=== PATIENT | male | born 1970 | race Caucasian/White ===

== ENCOUNTER 2016-04-23 19:45 | Emergency (ER) | payer OTHER ==
[2016-04-23] MEDS ORDERED: NS 0.9% 1000 ML* 1,000 ML IV SCH (21:00)
--- NOTE | 2016-04-23 21:09 | RAD ---
indication: Dizziness, Bilateral ecchymosis and midline forehead "bump" after falling down stairs. COMPARISON: CT of the brain dated January 30, [address] scan of the brain and c-spine was performed without intravenous contrast enhancement. Contiguous axial sections were obtained from the lung apices through the vertex. BRAIN: The ventricles, cisterns and sulci are within normal limits. No significant focal abnormality or mass effect is seen. The montes-white differentiation is adequately maintained. There is no evidence for intracranial hemorrhage. No significant bony abnormality is present. The mastoid air cells are appropriately aerated. The visualized paranasal sinuses are clear. FACIAL BONES: There is subcutaneous soft tissue induration and thickening overlying the midline frontal bone, nasal bone and bilateral super orbital area. Bones: There are bilateral nasal bone fractures deviated towards the patient's left, stable when compared to the previous CT examination. The orbital rim is intact. The zygomatic arch is intact. The pterygoid plates are intact Orbits: The globes are round. The optic nerves are symmetric. The extraocular musculature is normal. There is no post septal or intraconal inflammatory change. There is no retrobulbar hematoma. Paranasal Sinuses: The paranasal sinuses are clear. C-SPINE: On the sagittal view images the vertebral bodies and bilateral facet joints are correctly aligned. The dens is intact and the atlantoaxial interval is not widened. There is nonspecific straightening of the normal cervical lordosis. Mild degenerative changes include loss of intervertebral disc height. There is no hyperdense material in the cervical canal to indicate hemorrhage. The visualized musculature and soft tissues are normal. There is no gross lymphadenopathy visualized. The visualized portion of the lung apices are clear. IMPRESSION: 1. No calvarial fracture or acute intracranial hemorrhage. 2. Chronic nasal bone fractures unchanged since the January 30, 2016 CT of the brain. 3. There is subcutaneous induration and thickening overlying the midline frontal bone but no acute facial bone fractures are identified. 4. Mild degenerative changes of the cervical spine without evidence of acute fracture or dislocation.
[2016-04-23 21:10] LABS: Hematocrit 41 % (42-52); Hemoglobin 13.6 g/dl (14.0-18.0); Mean Corpuscular HGB Conc 33 g/dl (31-36); Mean Corpuscular Hemoglobin 30 pg (27-31); Mean Corpuscular Volume 90 fL (80-94); Mean Platelet Volume 9 um3 (7.4-10.4); Red Blood Count 4.53 10^6/ul (4.0-5.4); Red Cell Distribution Width 15 % (10.5-15); White Blood Count 8.6 10^3/ul (3.5-10.8)
[2016-04-23 21:20] LABS: Ammonia 44 mol/L (16-53)
[2016-04-23 21:28] LABS: Acetaminophen < 15 mcg/mL; Alcohol < 10 mg/dL (<10); Salicylate < 2.50 mg/dL (<30)
[2016-04-23 21:38] LABS: TSH (Thyroid Stimulating Horm) 0.54 mcIU/mL (0.34-5.60)
--- NOTE | 2016-04-23 22:12 | RAD ---
Indication: Left lower leg pain after a fall down the stairs Comparison: None. Technique: 4 views of the left lower leg, 3 views of the left ankle and 4 views of the left foot were obtained. Report: There is a nondisplaced partially comminuted fracture at the proximal metaphysis of the fibula. The remaining visualized bones are adequately corticated and well aligned. The knee and ankle joints are appropriately aligned. The soft tissues appear grossly normal. IMPRESSION: Minimally displaced comminuted fracture involving the proximal left fibula.
[2016-04-23 22:39] LABS: ALT 14 U/L (7-52); AST 20 U/L (13-39); Albumin 3.8 g/dL (3.2-5.2); Alkaline Phosphatase 62 U/L (34-104); Anion Gap 10 mmol/L (2-11); BUN/Creatinine Ratio 18.2 (8-20); Blood Urea Nitrogen 16 mg/dL (6-24); C Reactive Protein 73.65 mg/L (< 5.00); CO2 Carbon Dioxide 22 mmol/L (22-32); Calcium 8.8 mg/dL (8.6-10.3); Chloride 103 mmol/L (101-111); Creatine Kinase 271 U/L (10-223); EGFR African American 119.4 (>60); EGFR Non-African American 92.8 (>60); Globulin 2.6 g/dL (2-4); Glucose 87 mg/dL (70-100); Lipase 36 U/L (11.0-82.0); Magnesium 2.2 mg/dL (1.9-2.7); Potassium 3.6 mmol/L (3.5-5.0); Sodium 135 mmol/L (133-145); Total Protein 6.4 g/dL (6.4-8.9)
[2016-04-23 22:46] LABS: B Type Natriuretic Peptide 82 pg/mL
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
[2016-04-24 00:12] VITALS: BP 108/66
== END 2016-04-24 00:21 | disposition short-term general hospital (02) ==
LOC: ED 19:45
DX: S09.90XA Unspecified injury of head, initial encounter (principal); S82.402A Unspecified fracture of shaft of left fibula, initial encounter for closed fracture; R51 Headache; Z87.891 Personal history of nicotine dependence; W19.XXXA Unspecified fall, initial encounter; Y93.9 Activity, unspecified; Y92.9 Unspecified place or not applicable; Y99.9 Unspecified external cause status; W10.9XXA Fall (on) (from) unspecified stairs and steps, initial encounter
CPT/HCPCS: 36415; 70450; 70486; 72125; 80053; 80320; 80329; 82140; 82550; 82553; 83605; 83690; 83735; 83880; 84443; 84484; 85025; 85610; 85730; 86140; 93005; 99285; G0480

== ENCOUNTER 2016-05-06 19:39 | Emergency (ER) | payer OTHER ==
[2016-05-06] MEDS ORDERED: Ibuprofen TAB* 800 MG PO ONE (20:42)
--- NOTE | 2016-05-06 21:39 | RAD ---
INDICATION: Left ankle injury. TECHNIQUE: 3 views of the left ankle were obtained. FINDINGS: There is diffuse soft tissue swelling. There is a small linear avulsion fracture fragment arising from the dorsal aspect of the navicular bone. No other fractures are seen. Joint spaces appear maintained. IMPRESSION: 1. DIFFUSE SOFT TISSUE SWELLING. 2. SMALL NONDISPLACED AVULSION FRACTURE FRAGMENT ARISING FROM THE DORSAL NAVICULAR BONE.
--- NOTE | 2016-05-06 21:39 | RAD ---
INDICATION: Left lower leg injury. TECHNIQUE: 2 views of the left lower leg were obtained. FINDINGS: There is an oblique slightly comminuted fracture of the proximal fibular metaphysis. The fracture fragments are slightly distracted. IMPRESSION: OBLIQUE SLIGHTLY COMMINUTED FRACTURE OF THE PROXIMAL FIBULAR METAPHYSIS.
--- NOTE | 2016-05-06 21:43 | RAD ---
INDICATION: Left foot injury. TECHNIQUE: 3 views of the left foot were obtained. FINDINGS: There is diffuse soft tissue swelling which is most prominent along the dorsal aspect of the foot. There is a small linear nondisplaced avulsion fracture fragment arising from the dorsal aspect of the navicular bone. There is also a small linear calcific density between the first and second metatarsals suggesting the possibility of a Lisfranc injury. IMPRESSION: 1. DIFFUSE SOFT TISSUE SWELLING. 2. SMALL LINEAR AVULSION FRACTURE FRAGMENT ARISING FROM THE DORSAL NAVICULAR BONE. 3. SMALL LINEAR CALCIFIC DENSITY BETWEEN THE BASES OF THE FIRST AND SECOND METATARSALS POSSIBLY INDICATING A LISFRANC INJURY. IF THE PATIENT HAS PAIN OVER THIS AREA RECOMMEND A FOLLOW-UP MRI OF THE FOOT FOR FURTHER EVALUATION.
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
[2016-05-06] MEDS ORDERED: HYDROcodone/ACETAMIN 5-325 MG* 1 TAB PO ONE (22:55)
[2016-05-07 00:15] VITALS: BP 126/74
== END 2016-05-07 00:07 | disposition home or self-care (01) ==
LOC: ED 19:39
DX: S82.402A Unspecified fracture of shaft of left fibula, initial encounter for closed fracture (principal); S92.252A Displaced fracture of navicular [scaphoid] of left foot, initial encounter for closed fracture; M25.572 Pain in left ankle and joints of left foot; Z87.891 Personal history of nicotine dependence; W19.XXXA Unspecified fall, initial encounter; Y93.9 Activity, unspecified; Y92.9 Unspecified place or not applicable; Y99.9 Unspecified external cause status
CPT/HCPCS: 99282; A9270-GY